=== PATIENT | female | born 1945 | race Hispanic/Latino ===

== ENCOUNTER 2016-08-21 11:12 | Day surgery (SDC) | payer MEDICARE, OTHER ==
[2016-08-21] MEDS ORDERED: IOPIDINE ONE (11:51)
[2016-08-21] MEDS ORDERED: MYDRIACYL ONE (11:51)
[2016-08-21] MEDS ORDERED: NEOFRIN ONE (11:52)
[2016-08-21] MEDS: NEOFRIN OS SCH ×3 (12:05→12:15)
[2016-08-21] MEDS: MYDRIACYL OS SCH ×3 (12:05→12:15)
[2016-08-21] MEDS ORDERED: NEOFRIN OS ONE (12:14)
[2016-08-21] MEDS ORDERED: MYDRIACYL OS ONE (12:14)
[2016-08-21] MEDS ORDERED: IOPIDINE OS ONE (12:14)
[2016-08-21 12:35] VITALS: BP 122/75
[2016-08-21] MEDS ORDERED: IOPIDINE OS NR (13:00)
== END 2016-08-21 11:13 | disposition home or self-care (01) ==
LOC: OR 11:12
PROVIDERS: ATTEND Ophthalmology
DX: H26.492 Other secondary cataract, left eye (principal)